=== PATIENT | female | born 1995 | race Caucasian/White ===

== ENCOUNTER 2020-08-31 13:30 | Outpatient (CLI) | payer OTHER | END 2020-08-31 13:39 | disposition home or self-care (01) | LOC: TOM 13:30 | PROVIDERS: ATTEND Specialist | DX: G93.89 Other specified disorders of brain (principal); G45.8 Other transient cerebral ischemic attacks and related syndromes ==

== ENCOUNTER 2022-07-09 20:20 | Emergency (ER) | payer OTHER ==
[~2022-07-09] VITALS: Ht 157.5 cm; Wt 54.0 kg
[2022-07-09] MEDS ORDERED: ZITHROMAX500 MG PO (22:57)
[2022-07-09] MEDS ORDERED: BENZONATATE200 M1 PO (22:58)
== END 2022-07-09 23:00 | disposition home or self-care (01) ==
LOC: ER 20:20
DX: J06.9 Acute upper respiratory infection, unspecified (principal); Z20.822 Contact with and (suspected) exposure to COVID-19

== ENCOUNTER 2024-05-04 19:41 | Emergency (ER) | payer OTHER ==
[~2024-05-04] VITALS: Ht 167.6 cm; Wt 68.0 kg
[~2024-05-04 19:41] MED LIST: BENZONATATE200 M1 PO; ZITHROMAX500 MG PO
[2024-05-04] MEDS ORDERED: PRENATABS FA T1 EACH PO (20:24)
[2024-05-04] MEDS ORDERED: ASPIRIN81 MG PO (20:25)
[2024-05-04] MEDS ORDERED: GUAIFENESIN/DEXTROMETHORPHAN 10ML BLIST.PACK PO STA (21:23)
[2024-05-04] MEDS ORDERED: CETIRIZINE HCL 5 MG/5 ML ML PO STA (21:23)
[2024-05-04] MEDS ORDERED: METHYLPREDNISOLONE SOD SUCC 40 MG VIAL IV STA (21:23)
[2024-05-04 21:46] LABS: HEMATOCRIT 28.4 % (36.0-45.00); HEMOGLOBIN 9.9 g/dL (12.0-15.00); MEAN CELL VOLUME 90.8 fL (80.00-100.00); MEAN CORPUSCULAR HEMOGLOBIN 31.7 pg (27.00-32.0); PLATELET COUNT 349 K/uL (150-450); RED BLOOD COUNT 3.12 M/uL (4.00-6.00); RED CELL DISTRIBUTION WIDTH 13.3 % (11.5-14.5)
[2024-05-04 22:14] LABS: CALCIUM 8.7 mg/dL (8.5-10.1); CREATININE SERUM 0.49 mg/dL (0.55-1.02); GFR 150.38; POTASSIUM 3.71 mEq/L (3.5-5.1)
[2024-05-05] MEDS ORDERED: DEXAMETHASONE4 MG PO (00:06)
[2024-05-05] MEDS ORDERED: SINGULAIR10 MG PO (00:06)
[2024-05-05] MEDS ORDERED: ZYRTEC10 MG PO (00:06)
[2024-05-05] MEDS ORDERED: MUCINEX DM ER1 EACH PO (00:06)
== END 2024-05-05 00:39 | disposition home or self-care (01) ==
LOC: ER 19:43
PROVIDERS: General Practice
DX: O26.893 Other specified pregnancy related conditions, third trimester (principal); Z3A.28 28 weeks gestation of pregnancy; J06.9 Acute upper respiratory infection, unspecified; Z20.822 Contact with and (suspected) exposure to COVID-19
CPT/HCPCS: 36415; 96365; 99282; J3490

== ENCOUNTER 2024-05-20 20:52 | Emergency (ER) | payer OTHER ==
[~2024-05-20] VITALS: Ht 167.6 cm; Wt 68.0 kg
[~2024-05-20 20:52] MED LIST changes: +ASPIRIN81 MG PO; +DEXAMETHASONE4 MG PO; +MUCINEX DM ER1 EACH PO; +PRENATABS FA T1 EACH PO; +SINGULAIR10 MG PO; +ZYRTEC10 MG PO
[2024-05-20 21:11] VITALS: BP 136/82; O2SAT 98
[2024-05-21] MEDS ORDERED: HYDROCODONE/CHLORPHEN P-STIREX 5 ML ML PO STA (04:59)
== END 2024-05-21 05:08 | disposition home or self-care (01) ==
LOC: ER 20:54
DX: R53.81 Other malaise (principal); J06.9 Acute upper respiratory infection, unspecified